=== PATIENT | female | born 1955 | race African-American/Black ===

== ENCOUNTER 2016-08-16 07:44 | Emergency (ER) | payer SELFPAY ==
[2016-08-16 07:59] VITALS: BP 165/86; PULSE 63; TEMP 98.3; BMI 25.4
[2016-08-16 09:20] LABS: BASOPHIL 1.1 % (0-2.0); EOSINOPHIL 3.4 % (0-4.5); MCH 26.1 pg (25.7-33.7); MCHC 31.9 g/dl (32.0-36.0); NEUTROPHILS 51.8 % (42.8-82.8); PLATELET COUNT 202 K/MM3 (134-434); RDW 13.8 % (11.6-15.6); URINE APPEARANCE CLEAR; URINE BILIRUBIN NEGATIVE (NEGATIVE); URINE BLOOD NEGATIVE (NEGATIVE); URINE COLOR STRAW; URINE GLUCOSE (UA) NEGATIVE (NEGATIVE); URINE KETONE NEGATIVE (NEGATIVE); URINE LEUK ESTERASE NEGATIVE (NEGATIVE); URINE NITRITE NEGATIVE (NEGATIVE); URINE PROTEIN NEGATIVE (NEGATIVE); URINE UROBILINOGEN NEGATIVE E.U./dl (0.2-1.0)
--- NOTE | 2016-08-16 09:34 | PDOC ---
History of Present Illness - General Chief Complaint: Weakness Stated Complaint: FEELING LETHARGIC Time Seen by Provider: 08/16/16 08:38 History Source: Patient Exam Limitations: No Limitations - History of Present Illness Initial Comments: 08/16/16 09:31 61 yr female history of HTN , MVP presents to ER concerned about possible tick bite. Pt has been feeling tired, lethargic for 4 days and pt noticed a tick crawling on her sofa behind where she was sitting. Pt denies fever, chills no chest pain or headache, states feels light headed . Pt also states she noticed "possible bug bite" to her right knee 4 days ago. Past History - Past Medical History Allergies/Adverse Reactions: Allergies Allergy/AdvReac Type Severity Reaction Status Date / Time Penicillins Allergy Intermediate hives, Verified 08/16/16 07:49 swelling acetaminophen [From Percocet] Allergy Mild Vomiting Verified 08/16/16 07:49 codeine phosphate Allergy Mild "really Verified 08/16/16 07:49 [From Tylenol-Codeine #3] bad feeling" milk Allergy Mild gi upset Verified 08/16/16 07:49 oxycodone HCl [From Percocet] Allergy Mild Vomiting Verified 08/16/16 07:49 Home Medications: Ambulatory Orders Atenolol [Tenormin -] 50 mg PO DAILY 08/16/16 Doxycycline Hyclate 200 mg PO ONCE #1 tablet. 08/16/16 Irbesartan 300 mg PO DAILY 08/16/16 HTN: Yes - Surgical History Abdominal Surgery: Yes (LAP.) - Psycho/Social/Smoking Cessation Hx Anxiety: No Suicidal Ideation: No Smoking History: Never smoked Hx Alcohol Use: No Drug/Substance Use Hx: No Substance Use Type: None Review of Systems - Review of Systems Able to Perform ROS?: Yes Is the patient limited Icelandic proficient: No Constitutional: Yes: Symptoms Reported, Loss of Appetite, Malaise HEENTM: No: Symptoms Reported Respiratory: Yes: Symptoms reported, Cough (dry) Cardiac (ROS): No: Symptoms Reported ABD/GI: No: Symptoms Reported : No: Symptoms Reported Musculoskeletal: No: Symptoms Reported Integumentary: No: Symptoms Reported Neurological: Yes: Symptoms reported, Other (light headed ) *Physical Exam - Vital Signs Last Vital Signs Temp Pulse Resp BP Pulse Ox 98.3 F 63 18 165/86 100 04/23/17 07:47 08/16/16 07:47 08/16/16 07:47 08/16/16 07:47 08/16/16 07:47 - Physical Exam General Appearance: Yes: Nourished, Appropriately Dressed HEENT: positive: EOMI, NINOSKA, TMs Normal, Pharynx Normal Neck: positive: Supple. 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8 MPV 9.0 Neutrophils % 51.8 Lymphocytes % 34.7 Monocytes % 9.0 Eosinophils % 3.4 Basophils % 1.1 Medical Decision Making - Medical Decision Making 08/16/16 09:33 cc: weak, tired, loss of appetite, possible bite will check labs, EKG, UA, Lyme titer vitals are stable, pt with steady gait no focal complaints, no light headedness now 08/16/16 11:02 pt left ER to go to the [employer] upstairs to eat breakfast while waiting. Pt refused EKG states she will see her PMD on Wednesday *DC/Admit/Observation/Transfer Diagnosis at time of Disposition: Weakness - Discharge Dispostion Disposition: HOME Condition at time of disposition: Good - Prescriptions Prescriptions: Doxycycline Hyclate 200 mg PO ONCE #1 tablet.dr - Patient Instructions Additional Instructions: follow with your doctor next week for further evaluation if symptoms worsen or persist
[2016-08-16 09:44] LABS: ALBUMIN 3.5 g/dl (3.4-5.0); ANION GAP 8 (8-16); BILIRUBIN,TOTAL 0.4 mg/dL (0.2-1.0); CALCIUM 8.6 mg/dL (8.5-10.1); CO2 28 mmol/L (21-32); CREATININE 0.6 mg/dL (0.55-1.02); GLUCOSE,RANDOM 61 mg/dL (74-106); SGOT/AST 19 U/L (15-37); SGPT/ALT 27 U/L (12-78); TOT PROT 6.7 g/dl (6.4-8.2)
[2016-08-16 09:47] LABS: ALK PHOS 99 U/L (45-117); TROPONIN I < 0.02 ng/ml (0.00-0.05)
[2016-08-16 13:33] LABS: ERYTHROCYTE SEDIMENTATION RATE 4 mm/hr (0-30)
== END 2016-08-16 11:33 | disposition home or self-care (01) ==
LOC: JER 07:44 → JERFT 07:44
DX: R53.1 Weakness (principal); I10 Essential (primary) hypertension
CPT/HCPCS: 36415; 80053; 81003; 82550; 84484; 85025; 85651; 86618; 99281-25